=== PATIENT | female | born 1995 | race African-American/Black ===

== ENCOUNTER 2016-11-30 10:28 | Emergency (ER) | payer OTHER | END 2016-11-30 14:32 | disposition home or self-care (01) | LOC: D.ER 10:28 | DX: J11.1 Influenza due to unidentified influenza virus with other respiratory manifestations (principal); F17.200 Nicotine dependence, unspecified, uncomplicated ==

== ENCOUNTER → 2017-07-01 09:48 | Outpatient (CLI) | payer MEDICAID ==
[~2017-07-01 09:48] MED LIST: IBUPROFEN800 MG PO; NIFEDIPINE ER60 MG PO; PERCOCET 7.5/321 TAB PO
[2017-07-01 11:40] LABS: APPEARANCE CLEAR (CLEAR); BILIRUBIN NEGATIVE (NEGATIVE); COLOR YELLOW (YELLOW); GLUCOSE NEGATIVE (NEGATIVE); KETONE NEGATIVE (NEGATIVE); NITRITE NEGATIVE (NEGATIVE); PROTEIN NEGATIVE (NEGATIVE); UROBILINOGEN NORMAL (NORMAL)
== END | disposition home or self-care (01) ==
LOC: D.LDO 09:48
PROVIDERS: Obstetrics & Gynecology
DX: O16.3 Unspecified maternal hypertension, third trimester (principal); Z3A.35 35 weeks gestation of pregnancy

== ENCOUNTER 2017-07-08 09:24 | Inpatient (IN) | payer MEDICAID ==
[~2017-07-08] VITALS: Ht 167.6 cm; Wt 161.9 kg
[2017-07-08 10:21] VITALS: BP 150/89; Ht 167.6 cm; Wt 161.9 kg
[2017-07-08 10:59] LABS: BASOPHILS 0.2 % (0-2); EOSINOPHILS 1.8 % (0-7); HEMATOCRIT 35.3 % (36.0-48.0); HEMOGLOBIN 11.9 g/dL (12-16); IMMATURE GRANULOCYTES 0.6 % (0-5); LYMPHOCYTES 22.4 % (15-50); MCH 26.7 pg (26.0-34.0); MCHC 33.7 g/dL (31.0-37.0); MCV 79.1 fL (80.0-100.0); MEAN PLATELET VOLUME 9.2 fL (7.4-10.4); MONOCYTES 11.2 % (2-11); NEUTROPHILS 63.8 % (40-80); PLATELET COUNT 334 10x3/uL (130-400); RBC 4.46 10x6/uL (4.00-5.40); RDW 14.3 % (11.5-14.5); WBC 12.6 10x3/uL (4.8-10.8)
[2017-07-08 11:15] LABS: ALBUMIN 2.4 g/dL (3.4-5.0); ALKALINE PHOSPHATASE 98 U/L (46-116); ALT (SGPT) 18 U/L (10-68); BILIRUBIN - DIRECT 0.03 mg/dL (0.00-0.30); BILIRUBIN - INDIRECT 0.12 mg/dL (0.00-1.00); BILIRUBIN - TOTAL 0.15 mg/dL (0.2-1.3); CALC OSMOLALITY 272 mosm/kg (275-300); CARBON DIOXIDE 24.7 mmol/L (21.0-32.0); CHLORIDE - SERUM 106 mmol/L (98-107); CREATININE - SERUM 0.5 mg/dL (0.6-1.3); GLUCOSE 70 mg/dL (74-106); POTASSIUM - SERUM 4.1 mmol/L (3.5-5.1); PROTEIN - SERUM 6.6 g/dL (6.4-8.2); SODIUM 139 mmol/L (136-145); UREA NITROGEN 5 mg/dL (7-18); URIC ACID 4.2 mg/dL (2.6-7.2); eGFR NON AFRICAN AMERICAN > 90 mL/min (90-120)
[2017-07-08 11:31] LABS: APPEARANCE HAZY (CLEAR); BILIRUBIN NEGATIVE (NEGATIVE); COLOR YELLOW (YELLOW); GLUCOSE NEGATIVE (NEGATIVE); KETONE NEGATIVE (NEGATIVE); NITRITE NEGATIVE (NEGATIVE); PROTEIN 1+ mg/dL (NEGATIVE); UROBILINOGEN NORMAL (NORMAL)
[2017-07-08 11:32] LABS: BACTERIA FEW /hpf (NONE SEEN); EPITHELIAL CELLS 0-5 /hpf (0-5); MUCUS <1+ /lpf (NONE SEEN); WHITE CELLS - URINE OCC /hpf (0-5)
[2017-07-09 07:32] LABS: RAPID PLASMA REAGIN Non Reactive (Non Reactive)
[2017-07-09 18:08] LABS: BASOPHILS 0.1 % (0-2); HEMATOCRIT 38.8 % (36.0-48.0); IMMATURE GRANULOCYTES 0.4 % (0-5); LYMPHOCYTES 19.5 % (15-50); MCH 26.9 pg (26.0-34.0); MCHC 33.5 g/dL (31.0-37.0); MCV 80.2 fL (80.0-100.0); MEAN PLATELET VOLUME 9.2 fL (7.4-10.4); MONOCYTES 4.9 % (2-11); NEUTROPHILS 74.1 % (40-80); RBC 4.84 10x6/uL (4.00-5.40); RDW 14.6 % (11.5-14.5); WBC 14.3 10x3/uL (4.8-10.8)
[2017-07-09 18:11] LABS: PLATELET COUNT 267 10x3/uL (130-400)
[2017-07-09 19:13] LABS: ALBUMIN 2.6 g/dL (3.4-5.0); ALKALINE PHOSPHATASE 110 U/L (46-116); ALT (SGPT) 20 U/L (10-68); BILIRUBIN - TOTAL 0.27 mg/dL (0.2-1.3); CALC OSMOLALITY 273 mosm/kg (275-300); CALCIUM 10.5 mg/dL (8.5-10.1); CARBON DIOXIDE 22.1 mmol/L (21.0-32.0); CHLORIDE - SERUM 104 mmol/L (98-107); CREATININE - SERUM 0.5 mg/dL (0.6-1.3); GLUCOSE 102 mg/dL (74-106); POTASSIUM - SERUM 4.4 mmol/L (3.5-5.1); PROTEIN - SERUM 6.7 g/dL (6.4-8.2); SODIUM 138 mmol/L (136-145); UREA NITROGEN 6 mg/dL (7-18); URIC ACID 5.2 mg/dL (2.6-7.2); eGFR NON AFRICAN AMERICAN > 90 mL/min (90-120)
[2017-07-10] VITALS (13 sets, daily range): BP systolic 130–177; BP diastolic 77–104
--- NOTE | 2017-07-10 17:56 | NUR ---
RECEIVED PT FROM VIA BED TO ROOM 1274. BED LOCKED AND PLACED IN LOW POSITION. VS NOTED. DENIES PAIN, HEADACHE, VIS PROBLEMS, EPIG OR RUQ PAIN. HRRR WITHOUT AUDIBLE MURMUR. BBS HYPOACTIVE. ABDOMEN SOFT. FUNDUS FIRM AT U/1. RUBRA LOCHIA SMALL AMT. PERIPAD CHANGED. ICE PACK TO INCISION. INCISION WITH GLUE AND SKIN STITCHES. NO REDNESS, SWELLING OR DRAINAGE NOTED. PPP. MILD NON-PITTING EDEMA NOTED TO BLE. SCDS ON BLE. PUMP ON. PIV OF NS WITH PITOCIN 20 UNITS INFUSING AT 125 ML/HR. SITE CLEAR TO RIGHT WRIST. PT PROVIDED APPLE JUICE AND ENCOURAGED TO CONSUME SLOWLY.
--- NOTE | 2017-07-10 18:22 | NUR ---
PROCARDIA XL 30 MG GIVEN PO ORDERED. PT INSTRUCTED ON MED. VERBALIZES UNDERSTANDING.
--- NOTE | 2017-07-10 18:36 | NUR ---
DR SZYMANSKI NOTIFIED OF PT BP'S AND PROCARDIA GIVEN. NEW PARAMETERS RECEIVED.
--- NOTE | 2017-07-10 19:00 | NUR ---
PATIENT REPORT RECEIVED FROM IVETT ABREU TO ASSUME PATIENT CARE.
--- NOTE | 2017-07-10 19:12 | NUR ---
PATIENT ASSESSMENT PERFORMED. PT LYING IN BED ON HER BACK, FAMILY AT BEDSIDE. PERICARE PERFORMED,CLEAN PAD PLACED. PATTERSON CATHETER EMPTIED OF 100ML CONCENTRATED URINE. SCD BOOTS IN PLACE.18 GAUGE IV TO RIGHT WRIST PATENT AND FLUIDS INFUSING PER MD ORDER WITHOUT S/S OF INFILTRATION. PATIENT STATES THAT HER PAIN IS 4/10 CRAMPING TO ABDOMEN AND SHARP PAIN TO INCISION. FUNDUS FIRM,MIDLINE,-1. BLEEDING SMALL, RUBRA, NO CLOTS. PATIENT DENIES FEELING UPON CHECKING HOMANS SIGN DUE TO SPINAL ANESTHESIA. PT DENIES NEED AT THIS TIME. FAMILY REMAINS AT BEDSIDE BUT IS AWARE TO KEEP LIGHTS OFF AND ROOM QUIET DUE TO INCREASED BP. PT TEACHING DONE ON DEEP BREATHING, IS, ELEVATED BP, MEDICATIONS AND PLAN OF CARE.
--- NOTE | 2017-07-10 19:50 | NUR ---
PATIENT TURNED TO LEFT SIDE USING PILLOWS FOR COMFORT AND SUPPORT. BP CUFF CHANGED TO LARGER SIZE AND BP RETAKEN. 145/96. INCENTIVE SPIROMETER TEACHING PERFORMED AND DEMONSTRATION RETURNED BY PATIENT. JEMALNEVILLEO AND BROTH REQUESTED OFF TRAY. PATIENTS MOTHER ASSISTING HER WITH EATING AT THIS TIME.
--- NOTE | 2017-07-10 20:50 | NUR ---
PATIENT RESTING QUIETLY WITH EYES OPEN, FAMILY REMAINS AT BEDSIDE. PT STATES THAT HER PAIN IS UNCHANGED, MEAT [employer]ODUCTS DEMONSTRATOR TEACHING PERFORMED AND PT VERBALIZES UNDERSTANDING. PATTERSON CATHETER EMPTIED OF 600ML CLEAR YELLOW URINE AT THIS TIME. FRESH ICE PACK PLACED TO ABDOMINAL INCISION SITE. ICE WATER PROVIDED PER PT REQUEST, TRAY TABLE AND CALL CHAPARRO IN REACH. BED LOCKED IN LOW POSITION AND SIDE RAILS REMAIN UPX2. PT DENIES FURTHER NEEDS, ENCOURAGED TO CALL PRN.
--- NOTE | 2017-07-10 21:15 | NUR ---
PATIENT DRANK 480ML WATER AND PROVIDED WITH A SECOND CUP OF ICE WATER. DENIES OTHER NEEDS
--- NOTE | 2017-07-10 21:20 | NUR ---
ENGINEERING HERE TO EVALUATE ROOM PHONE THAT WILL NOT ALLOW CALLS TO COME INTO ROOM. ENGINEERING CONCLUDED THAT DAYSHIFT IN ENGINEERING WILL HAVE TO RESOURCE COMPANY TO FIX PHONE. GAVE PT. OPTION OF CHANGING ROOMS OR REMAINING IN ROOM AND USING HER CELL PHONE IF SHE DESIRES. PT. RELATES THAT SHE PREFERS NOT TO CHANGE ROOMS AND SHE REALLY DID NOT WANT TO TALK ON THE PHONE ANYWAY BUT WOULD USE CELL PHONE IF DESIRED.
--- NOTE | 2017-07-10 22:05 | NUR ---
PATIENT RESTING ON LEFT SIDE WITH EYES CLOSED. EASILY AROUSED TO VERBAL. PT STATES PAIN REMAINS TOLERABLE AT 4/10, PERICARE PERFORMED AND CLEAN PAD PLACED, ICE PACK REMAINS IN PLACE, BLEEDING NOTED TO BE SMALL RUBRA. PATTERSON CATHETER EMPTIED OF 650ML CLEAR YELLOW URINE. PT DRANK 500ML WATER AND IS REQUESTING MORE, ICE WATER PROVIDED AT THIS TIME. PT DENIES OTHER NEEDS.
[2017-07-11] VITALS (10 sets, daily range): BP systolic 130–202; BP diastolic 69–92
--- NOTE | 2017-07-11 00:10 | NUR ---
PATIENT SLEEPING, EASILY AROUSED TO VERBAL. PATIENT TURNED TO RIGHT SIDE WITH ASSISTANCE. PERICARE PERFORMED, CLEAN PAD PLACED, BLEEDING SMALL, RUBRA. PATTERSON CATHETER EMPTIED OF 1000ML CLEAR YELLOW URINE. INCENTIVE SPIROMETER USED AT THIS TIME, PT ABLE TO INHALE TO THE 1000 CRISTINA. FRESH ICE WATER PROVIDED PER PT REQUEST.
--- NOTE | 2017-07-11 01:18 | NUR ---
PATIENTS BP NOTED TO BE ELEVATED AT 0048. CUFF NOTED TO HAVE FALLEN DOWN HER ARM. CUFF REPLACED TO APPROPRIATE POSITION AND BP RETAKEN WITH RESULTS OF 178/84. THESE MEET THE PARAMETERS SET BY THE MD. WILL CONTINUE TO MONITOR.
--- NOTE | 2017-07-11 01:23 | NUR ---
PATIENT GIVEN LABETALOL 200MG PO AT THIS TIME WITH WATER. PATIENT DENIES ANY HEADACHES OR BLURRY VISION. PT HAS NO COMPLAINTS AT THIS TIME, WILL CONTINUE TO MONITOR.
--- NOTE | 2017-07-11 01:41 | NUR ---
PATIENTS BP RETAKEN AT THIS TIME. 148/76. PATIENT RESTING QUIETLY WITH EYES CLOSED. EASILY AROUSED TO VERBAL. DENIES NEEDS OR PAIN AT THIS TIME.
--- NOTE | 2017-07-11 02:01 | NUR ---
PATIENT SLEEPING WITH AUDIBLE SNORING. EASILY AROUSED TO VERBAL, DENIES PAIN OR NEEDS AT THIS TIME, NEW IV BAG OF NS WITH 20 UNITS PITOCIN HUNG AT 125ML/HR PER MD ORDERS. PATTERSON CATHETER EMPTIED OF 500ML CLEAR YELLOW URINE. BED LOCKED IN LOW POSITION, TRAY TABLE AND CALL CHAPARRO IN REACH. FAMILY REMAINS AT BEDSIDE FOR ASSISTANCE.
--- NOTE | 2017-07-11 04:27 | NUR ---
PATIENT SLEEPING WITH AUDIBLE SNORING. 400ML CLEAR YELLOW URINE EMPTIED FROM PATTERSON CATHETER.
--- NOTE | 2017-07-11 05:58 | NUR ---
CALLED TO ROOM BY PATIENT. STATES THAT SHE IS UNABLE TO REACH HER WIND TUNNEL TECHNICIAN BUTTON. REMINDED HER THAT IT WAS TIED TO THE SIDERAIL, HANDED IT TO HER AT THIS TIME FOR USE. PT STATES THAT SHE WAS MOVING AROUND IN THE BED AND STARTED TO HURT, 5/10 ON THE PAIN SCALE. WILL CONTINUE TO MONITOR.
--- NOTE | 2017-07-11 06:30 | NUR ---
PATIENT RESTING QUIETLY WITH EYES CLOSED. PATTERSON CATHETER EMPTIED OF 650ML CLEAR YELLOW URINE, PERICARE PERFORMED AND CLEAN PAD PLACED. SCD'S REMAIN IN PLACE. ICE WATER PROVIDED, PT DENIES OTHER NEEDS.
--- NOTE | 2017-07-11 06:52 | NUR ---
PATIENT REPORT GIVEN TO AM SHIFT TO ASSUME PATIENT CARE.
--- NOTE | 2017-07-11 07:12 | NUR ---
PT AAOX3, VSS, AFEBRILE, RESP EVEN AND UNLABORED, TOLERATING PO FLUIDS WELL WITHOUT N/V, LUNGS CTAB, BS+X4 QUADRANTS, DENIES FLATUS, U/1 WITH SMALL AMT LOCHIA RUBRA NOTED TO PERIPAD, NO CLOTS ON FUNDAL MASSAGE, LOW TRANSVERSE INCISION DRESSING CLEAN DRY INTACT WITHOUT DRAINAGE NOTED, ICE PACK TO INCISION SITE, ABLE TO MOVE BLE FREELY, NO EDEMA NOTED TO PERIPHERAL EXTREMETIES, NEGATIVE DON'S SIGN, CAP REFILL <3 SECS TO BLE, IV SITE TO RIGHT WRIST PATENT WITHOUT S/SX INFECTION OR INFIILTRATION AND INFUSING NS WITH 20U OF PITOCIN AT 125ML/HR. INSTRUCTED ON USE OF INCENTIVE SPIROMETER AND PT DEMONSTRATES USE AND ABLE TO INSPIRE UP TO 1000ML. INSTRUCTED ON PLAN OF CARE TODAY, ENCOURAGED TCDB, INCENTIVE SPIROMETER USE Q1 HOUR WHILE AWAKE, CLEAR LIQUIDS UNTIL MD CHANGES ORDERS, PAIN MANAGEMENT, USE OF ABDOMINAL PILLOW TO USE WHILE TURNING IN BED/MOVEMENT. PT AND PT MOTHER VOICES UNDERSTANDING OF ALL INSTRUCTIONS GIVEN. C/L IN EASY REACH BED IN LOW POSITION, SR UP X2. SR UP X2, BED IN LOW POSITION.
--- NOTE | 2017-07-11 08:15 | NUR ---
PT AAO WATCHING TV IN BED, SR UP X2, BED IN LOW, DENIES PAIN OR ANY NEEDS AT THIS TIME.
--- NOTE | 2017-07-11 09:06 | NUR ---
DENIES PAIN, FRESH ICE WATER PROVIDED TO PT, MOVES ALL EXTREMETIES ON DEMAND, HOLDING AT THIS TIME, RESP EVEN AND UNLABORED. C/L IN EASY REACH, OFFICE TECHNICIAN BUTTON IN EASY REACH.
--- NOTE | 2017-07-11 10:50 | NUR ---
VSS, AFEBRILE, TOLERATING PO CLEAR LIQUIDS WELL, PERICARE PROVIDED AND FRESH PERIPADS PLACED, U/1 MIDLINE AND FIRM, LOCHIA RUBRA SMALL AMT NOTED. INQUIRING ABOUT ABILITY TO SHOWER AND GET OOB. WILL CALL MD. DENIES PAIN, HOLDING INFANT IN ARMS. TEACHING PROVIDED ON WAKING INFANT IF FALLS ASLEEP WHILE FEEDING. STATES UNDERSTANDING.
--- NOTE | 2017-07-11 10:57 | NUR ---
CALLED MD OFFICE TO INQUIRE ABOUT DC ORDERS ON PATTERSON AND USUAL POST-OP ORDERS RECEIVED AFTER 12 HRS PT INQUIRING WHEN SHE CAN GET OOB. SPOKE WITH RANDY WHO STATES AFTER BRIEF HOLD ON PHONE THAT "HE SAID HE WILL BE OVER LATER TO WRITE THOSE ORDERS."
--- NOTE | 2017-07-11 11:30 | NUR ---
PT AAOX3, TURNS SELF IN BED, RESP EVEN AND UNLABORED, HOB AT 45 DEGREES, SR UP X2, BED IN LOW POSITION.
--- NOTE | 2017-07-11 12:09 | OP ---
PATIENT NAME: MANI VILLANUEVA MEDICAL RECORD: [id number] :94 LOCATION:[id number] ADMISSION DATE:07/08/17 SURGEON: BG SZYMANSKI MD DATE OF OPERATION: 07/10/2017 PREOPERATIVE DIAGNOSES: 1. Preeclampsia. 2. Oligohydramnios. 3. Failed induction. 4. at 37 weeks' gestation. POSTOPERATIVE DIAGNOSES: 1. Preeclampsia. 2. Oligohydramnios. 3. Failed induction. 4. at 37 weeks' gestation. PROCEDURE: Primary low transverse section. SURGEON: Bg Szymanski MD SUPERINTENDENT STORAGE AREA: [place]. ANESTHESIOLOGIST: Jacob Whalen MD ANESTHESIA: Spinal. FINDINGS: Viable male , vertex presentation, Apgars 9 and 10. Weight 2749 grams. Uterus with small anterior fibroid is otherwise unremarkable. Tubes and ovaries also unremarkable. SPECIMEN REMOVED: Placenta. SPECIMENS DISPOSITION: Discarded. ESTIMATED BLOOD LOSS: 700 cc. FLUIDS: 1500cc lactated Ringer's. URINE OUTPUT: 200 cc of clear urine. COMPLICATIONS: None. DRAINS: Smith to gravity. INDICATIONS: The patient is a 21-year-old female G1, para 0 who began induction approximately 48 hours ago with misoprostol. The patient has had 2 days of Pitocin and was ruptured this morning and who failed to go into active labor despite adequate uterine stimulation. The patient has been consented for primary low transverse section for the above indications. DESCRIPTION OF PROCEDURE: After informed consent was assured, the patient was taken to the operating room, anesthetic was obtained without difficulty. The patient is now prepped and draped in the usual sterile fashion. The low transverse incision was made on the abdomen, carried down to the underlying OPERATIVE REPORT [id number] MANI VILLANUEVA layer of the fascia, which was opened and extended laterally. The rectus bellies were and an Shai O retractor placed after opening the peritoneum. After tightening the self-retaining retractor, the sponges were used to pack the bowel away and the gutters. A bladder flap was developed and a low transverse hysterotomy performed. Infant was delivered on to the abdomen with atraumatically and the cord was doubly clamped and cut and passed to the attendance. Placenta delivered via Crede maneuver. Uterus exteriorized, cleared of all clot and debris. The uterus now closed in a running locked fashion with chromic stitch. Posterior cul-de-sac was irrigated and the uterus was felt to be boggy and 1 ampule of Hemabate was given directly into the uterine musculature. Uterus was now returned to the abdomen. The sponges were removed and the pelvis irrigated. The irrigants were removed and inspection of the hysterotomy revealed adequate hemostasis. The fascia was now closed with a looped PDS in a running fashion. Subcutaneous tissues were irrigated, bleeding vessels cauterized, and the fat layer reapproximated with plain gut. Skin was reapproximated with subcuticular stitch and Dermabond was applied. Sponge, lap, and needle counts were correct times 2. The patient tolerated the procedure well. She will be recovered and continue hospitalization on labor and delivery. TRANSINT:[id number] Voice Confirmation ID: [id number] DOCUMENT ID: [id number] BG SZYMANSKI MD at 1209 CC: [id number] DICTATION DATE: 07/10/17 174 ROCK LOADER: 07/10/[address] [facility] [address] [place] [address]
--- NOTE | 2017-07-11 12:15 | NUR ---
MACHINE MAINTENANCE SUPERVISOR DC'D AT 1210, IV SALINE LOCKED AT 1210, SITE BENIGN. PATTERSON DC'D PER MD ORDERS, EMPTIED CLEAR YELLOW URINE FROM DRAINAGE BAG, PERICARE GIVEN, U/1 MIDLINE AND FIRM, NO CLOTS OBSERVED, SCD'S OFF, DENIES PAIN, OOB TO CHAIR PER PT REQUEST WITH MINIMAL ASSISTANCE, DRESSING REMAINS CDI, TOLERATING PO FLUIDS WELL, REGULAR DIET ORDERED PER MD-TRAY ORDERED FROM [place] PER PT REQUEST, LINENS CHANGED. PT REQUESTING SHOWER. DISCUSSED PLAN OF CARE, SHOWERING, PERICARE, ORAL PAIN MEDICATIONS, AMBULATING WITH ASSISTANCE ONLY AT THIS TIME, DIET, AVOIDING GAS FORMING FOODS. PT MOTHER IN ROOM. QUESTIONS ANSWERED, VOICES UNDERSTANDING.
--- NOTE | 2017-07-11 13:21 | NUR ---
PT RINGS CL. RN TO BEDSIDE. PT SITTING UP IN CHAIR AT BEDSIDE. PT'S MOTHER BOTTLE FEEDING . PT REPORTS NEED TO VOID. PT AMB TO BATHROOM WITHOUT ASSISTANCE, STEADY GAIT NOTED. PT VOIDS 300ML BLOOD TINGED URINE INTO UROMETER WITHOUT DIFFICULTY. PERICARE TEACHING PROVIDED. PT VERBALIZES UNDERSTANDING. MESH PANTIES AND PERIPADS PROVIDED. PT AMB BACK TO CHAIR TO FINISH MEAL TRAY. REPORTS WILL AMB IN MOON AFTER HER MOTHER FINISHES FEEDING . DENIES FURTHER NEEDS AT THIS TIME.
--- NOTE | 2017-07-11 14:12 | NUR ---
PT AMB IN HALLWAY TO GET FROM NBN. DENIES PAIN OR NEEDS. WILL CONT TO MONITOR.
--- NOTE | 2017-07-11 15:15 | NUR ---
VSS AFEBRILE, NO NEEDS VOICED, AMBULATORY IN HALLS WITH INFANT IN CRIB AND PT MOTHER AT SIDE.
--- NOTE | 2017-07-11 15:30 | NUR ---
DR SZYMANSKI TO ROOM, DRESSING CDI TO LOW TRANSVERSE ABDOMEN. FAMILY AND VISITORS TO ROOM WELL. DENIES PAIN.
--- NOTE | 2017-07-11 16:05 | NUR ---
PT VISITORS GONE, PT RESTING WITH EYES CLOSED, NO PHYSICAL S/SX PAIN OBSERVED, RESP EVEN AND UNLABORED, C/L IN EASY REACH. ASLEEP IN CRIB NEXT TO PT BED.
--- NOTE | 2017-07-11 17:30 | NUR ---
PT IS SITTING UP ON THE SIDE OF THE BED, EATING SUPPER. PT REQUESTS LEMON EMMONAK SODA, SERVED TO PT. PT DENIES OTHER NEEDS AT THIS TIME. INFANT IN CRIB AT BEDSIDE. PT'S MOTHER AT BEDSIDE.
--- NOTE | 2017-07-11 18:37 | NUR ---
DENIES PAIN, RATES 0 ON PAIN SCALE 0-10, WILL GIVE PO TORADOL PER MD ORDER SCHEDULED. C/L IN EASY REACH, HOLDING IN ARMS, PT MOTHER ALSO PRESENT IN ROOM. STATES PASSING FLATUS.
--- NOTE | 2017-07-11 19:22 | NUR ---
INFANT IN ROOM IN OPEN CRIB. NBN NURSE ENTERS ROOM AND TALKS WITH PT. PT. LYING ON BACK WITH HOB AT 15 DEGREES. OPEN EYES WHEN QUESTIONED BUT ONLY ANSWERS DIRECT QUESTIONS. NOT TALKATIVE. BREATH SOUNDS CLEAR AND BOWEL SOUNDS AUDIBLE. ABD. DRESSING DRY AND INTACT. LOCHIA RUBRA SCANT. DENIES ANY PAIN IN LOWER EXTREMITIES. SALINE LOCK NOTED IN RT WRIST. NO REDNESS NOR EDEMA AT SITE. INFORMED PT. TO CALL THIS NURSE WHEN SHE IS UP TO AMBULATE THE NEXT TIME FOR ASSISTANCE IN REMOVING ABD. DRESSING. PT. STATES UNDERSTANDING. PT'S MOTHER IN ROOM ON SOFA. DENIES PAIN AT THIS TIME.
--- NOTE | 2017-07-11 19:30 | NUR ---
SITTING UP ON SIDE OF BED. ICE WATER AND APPLEJUICE SERVED. NBN NURSE REMAINS IN ROOM.
--- NOTE | 2017-07-11 19:35 | NUR ---
NEW 20 GAUGE IV STARTED TO RIGHT FOREARM AT THIS TIME BY EDWARD BURNETTE. FLUSHES EASILY, PATIENT DENIES PAIN AT THE SITE.
--- NOTE | 2017-07-11 19:39 | NUR ---
UP TO BATHROOM. STEADY GAIT.
--- NOTE | 2017-07-11 20:24 | NUR ---
STANDING IN ROOM HOLDING . KISSING INFANT AND SMILING. DENIES ANY NEEDS AT THIS TIME. STATES SHE IS PASSING FLATUS. ENCOURAGED PT. TO WALK IN HALLWAY PRIOR TO BEDTIME AND SHE RELATES THAT SHE WILL. PT'S MOTHER REMAINS IN ROOM WITH PT.
--- NOTE | 2017-07-11 20:27 | NUR ---
WALKING IN HALLWAY TAKING BACK TO NURSERY. GAIT STEADY.
--- NOTE | 2017-07-11 20:38 | NUR ---
CONTINUES TO AMBULATE IN HALLWAY.
--- NOTE | 2017-07-11 20:54 | NUR ---
BACK TO ROOM. DENIES ANY PAIN OR NEEDS AT THIS TIME.
--- NOTE | 2017-07-11 21:25 | NUR ---
SIDE RAILS UP X 2. PT. LYING IN BED WITH HOB AT 30 DEGREES. INQUIRED IF PT. WANTED THIS NURSE TO ASSIST HER IN REMOVING ABD. DRESSING. PT. STATES, "NO I WANT TO DO IT MYSELF." STATES SHE PLANS TO REMOVE NEXT TRIP UP TO BATHROOM. EXPLAINED HOW TO USE ALCOHOL PREP TO MOISTEN UNDERNEATH ADHESIVE OF DRESSING WHILE REMOVING. PT. STATED UNDERSTANDING. PT'S MOTHER REMAINS AT BEDSIDE. DISCUSSED WITH PT. CARE OF HER INCISION WHEN AT HOME. STATES UNDERSTANDING OF ALL INSTRUCTIONS. PT'S MOTHER ALSO REVIEWED WITH PT. SAME INSTRUCTIONS JUST GIVEN.
--- NOTE | 2017-07-11 21:53 | NUR ---
WALKED TO N TO GET AND RETURNED TO ROOM.
--- NOTE | 2017-07-11 22:56 | NUR ---
INTO ROOM FOR VS ASSESSMENT. PT. CURRENTLY FEEDING . PT. WILL CALL WHEN FEEDING IS COMPLETED. PT'S MOTHER ON SOFA.
--- NOTE | 2017-07-11 23:16 | NUR ---
PT. RETURNED FROM BATHROOM AND SITTING ON SIDE OF BED. VITAL SIGNS OBTAINED. DISCUSSED APPLYING SCDS AND EXPLAINED RATIONAL FOR SCDS. PT. DECLINED TO HAVE SCDS APPLIED AT THIS TIME. STATES SHE WILL MOVE LEGS ABOUT IN BED AND HAS BEEN GETTING UP TO WALK AND TO BATHROOM. PT'S MOTHER REMAINS IN ROOM ON SOFA. DENIES ANY PAIN AT THIS TIME. CALL LIGHT WITHIN REACH AND SIDE RAILS UP X2.
--- NOTE | 2017-07-12 00:23 | NUR ---
INTO ROOM. PT. AWAKENED FOR MED. ADMINISTRATION. APPLE JUICE PROVIDED. DENIES ANY FURTHER NEEDS.
--- NOTE | 2017-07-12 00:58 | NUR ---
HOLDING AT PRESENT. EXPRESSES THAT SHE IS HUNGRY. INFORMED OF NOURISHMENTS ON THE UNIT AND PT. DECLINED. STATES THEY DID NOT SOUND GOOD.
--- NOTE | 2017-07-12 01:00 | NUR ---
PT. PUSHING INFANT IN OPEN CRIB TO NBN. DECLINES THIS NURSE TAKING TO NBN. STATES SHE DESIRES TO WALK. DENIES ANY PAIN OTHER THEN WHEN SHE FIRST GETS UP. VISITORS IN ROOM.
--- NOTE | 2017-07-12 03:40 | NUR ---
LYING ON BACK WITH EYES CLOSED. SNOORING AUDIBLE. PT'S MOTHER AND FATHER ALSO SLEEPING IN ROOM. ROOM TEMP. COLD.
--- NOTE | 2017-07-12 04:50 | NUR ---
PT. AMBULATING IN ROOM AFTER RETURNING FROM BATHROOM. STATES HER IV IS COMING OUT. BLOOD NOTED AT SITE AND CATHETER IS PARTIALLY OUT. IV DISCONTINUED IN INTACT CATH . TIP NOTED. PT. SITTING ON SIDE OF BED FOR VITAL SIGN ASSESSMENT. PT. REPORTS THAT HER BP WILL PROBABLY BE HIGH DUE TO HER JUST BEING UP. SIDE RAILS UP X 2 AND CALL LIGHT WITHIN REACH.
[2017-07-12 04:51] VITALS: BP 173/91
[2017-07-12 06:18] VITALS: BP 189/94
--- NOTE | 2017-07-12 06:18 | NUR ---
UP AND ABOUT IN ROOM. EATING CHOCOLATE CANDY. IN OPEN CRIB AT BEDSIDE. PT. DENIES ANY PAIN. STATES THAT SHE IS READY TO GO HOME.
--- NOTE | 2017-07-12 06:29 | NUR ---
DR. STEPHON EVANS. PT. DENIES ANY PAIN.
--- NOTE | 2017-07-12 06:31 | NUR ---
DR. SZYMANSKI CALLED UNIT AND INFORMED OF BP READING AT 0450 AND ALSO 0618. INFORMED THAT BP READINGS WERE WITH PT. SITTING ON SIDE OF BED. STATES THAT HE WILL MANAGE BP MEDS WHEN HE ARRIVES FOR ROUNDS BUT NO FURTHER ORDERS UNTIL THAT TIME NEEDED.
[2017-07-12 07:20] VITALS: BP 145/86
--- NOTE | 2017-07-12 07:20 | NUR ---
THIS RN TO ROOM FOR SHIFT ASSESSMENT. PT AA0x3, SITTING UP IN BED HOLDING INFANT AND VISITING WITH FAMILY MEMBER. PT DENIES PAIN AT THIS TIME. SHIFT ASSESSMENT COMPLETE, VS OBTAINED, SEE FLOWSHEET FOR DOC. ROOM TEMP DECREASED DUE TO PT AXILLARY TEMP OF 99.3. LOCHIA DISCUSSED WITH PT, PT DENIES HEAVY LOCHIA DEFINED BY HAVING TO CHANGE PAD HOURLY OR LARGE OR SEVERAL CLOTS. INCISION C/D WITH DERMABOND INTACT, NO REDNESS, EDEMA, OR DRAINAGE NOTED. PT INSTRUCTED ON IMPORTANCE OF KEEPING INCISION CLEAN AND DRY. NEW PERIPAD PLACED OVER INCISION TO KEEP DRY. POSSIBLE DISCHARGE TODAY DISCUSSED WITH PT, PT STATES SHE IS READY TO GO HOME. PT PROVIDED WITH PERIPADS, INSTRUCTED TO CALL FOR ANY OTHER NEEDS. UNDERSTANDING VERBALIZED. SRUx2, CL IN REACH. WILL CONT TO MONITOR.
--- NOTE | 2017-07-12 08:50 | NUR ---
DR SZYMANSKI TO PT ROOM FOR ROUNDING.
[2017-07-12 09:11] LABS: BASOPHILS 0.1 % (0-2); EOSINOPHILS 1.5 % (0-7); HEMATOCRIT 31.6 % (36.0-48.0); HEMOGLOBIN 10.6 g/dL (12-16); IMMATURE GRANULOCYTES 0.7 % (0-5); LYMPHOCYTES 19.3 % (15-50); MCH 26.6 pg (26.0-34.0); MCHC 33.5 g/dL (31.0-37.0); MCV 79.2 fL (80.0-100.0); MEAN PLATELET VOLUME 8.5 fL (7.4-10.4); MONOCYTES 7.9 % (2-11); NEUTROPHILS 70.5 % (40-80); PLATELET COUNT 264 10x3/uL (130-400); RBC 3.99 10x6/uL (4.00-5.40); RDW 14.6 % (11.5-14.5); WBC 13.6 10x3/uL (4.8-10.8)
--- NOTE | 2017-07-12 09:23 | NUR ---
THIS RN TO ROOM TO ADMIN PROCARDIA ORDERED. PT SHOWERING, FAMILY IN ROOM. PT DENIES NEED FOR ASSISTANCE OR SUPPLIES. WILL RETURN FOR SUPERVISOR MENDING.
--- NOTE | 2017-07-12 09:50 | NUR ---
PT FAMILY MEMBER TO DESK STATING THAT PAIN WANTS PAIN MEDICAITON AFTER SHOWERING. THIS RN TO ROOM. PT SITTING ON BEDSIDE, STATES PAIN IS 6/10 AT INCISION FOLLOWING SHOWER AND REQUESTS PAIN MEDICATION. PT DENIES NEEDING 2 PERCOCET TABS, 1 TAB ADMIN PER ORDER. PT ADMIN ORDERED PROCARDIA. SEE EMAR FOR DOC. PT PROVIDED WITH FRESH ICE WATER, DENIES FURTHER NEEDS, VISITING WITH FAMILY. SRUx2, CL IN REACH. WILL CONT TO MONITOR.
[2017-07-12] MEDS ORDERED: PERCOCET 7.5/321 TAB PO (10:15)
[2017-07-12] MEDS ORDERED: NIFEDIPINE ER60 MG PO (10:17)
[2017-07-12] MEDS ORDERED: IBUPROFEN800 MG PO (10:17)
--- NOTE | 2017-07-12 10:30 | NUR ---
THIS RN TO ROOM FOR PT CHECK. PT RATES PAIN 2/10, STATES PERCOCET HELPED. PT DENIES NEEDS AT THIS TIME, VISITING WITH FAMILY. SRUx2, CL IN REACH.
--- NOTE | 2017-07-12 12:00 | NUR ---
PT AMBULATIING IN HALLS TO ICE MACHINE, DENIES PAIN OR ANY NEEDS AT THIS TIME. WILL CONT TO MONITOR.
[2017-07-12 13:23] VITALS: BP 139/76
--- NOTE | 2017-07-12 13:23 | NUR ---
THIS RN TO ROOM FOR PT CHECK AND COMMUNITY MANAGER. PT SUPINE, HOB 45 DEGREES, RESTING WITH EYES CLOSED. RESP EVEN AND UNLABORED. PT ALERTS THIS RN ENTERS ROOM. PT DENIES PAIN OR ANY NEEDS. BP STABLE, SEE FLOWSHEET. PT ADMIN ORDERED TORADOL. PT DENIES FURTHER NEEDS. SRUx2, CL IN REACH.
--- NOTE | 2017-07-12 14:07 | NUR ---
THIS RN TO ROOM FOR PT CHECK. PT SITTING UP IN BED VISITING WITH FAMILY, DENIES NEEDS. SRUx2, CL IN REACH.
--- NOTE | 2017-07-12 15:10 | NUR ---
THIS RN TO ROOM FOR PAIN REASSESSMENT AND D/C INSTRUCTIONS. PT DENIES PAIN AT THIS TIME. DISCHARGE INSTRUCTIONS GIVEN WELL WRITTEN PRESCRIPTIONS. PT VERBALIZES UNDERSTANDING AND DENIES QUESTIONS. PT SIGNS CHART COPIES, GIVEN WRITTEN COPIES OF INSTRUCTIONS. ROOMING IN AGREEMENT REVIEWED WITH PT. PT VERBALIZES UNDERSTANDING AND SIGNS AGREEMENT. AGREEMENT PROVIDED TO NURSERY FOR CONTACT INFO. PT AND FAMILY MOVE BELONGINGS TO ROOM 1215 TO ROOM IN.
== END 2017-07-12 15:30 | disposition home or self-care (01) | DRG 765 ==
LOC: D.LDO 09:24 → D.LD 11:49 → D.WS 07-12 15:30
PROVIDERS: Obstetrics & Gynecology; ADMIT Obstetrics & Gynecology
PROC: 10D00Z1 Extraction of Products of Conception, Low, Open Approach (ICD-10-PCS; principal; 2017-07-10 16:00)
DX: O14.94 Unspecified pre-eclampsia, complicating childbirth (principal); O41.03X0 Oligohydramnios, third trimester, not applicable or unspecified; Z3A.37 37 weeks gestation of pregnancy; Z37.0 Single live birth; O61.0 Failed medical induction of labor; O16.5 Unspecified maternal hypertension, complicating the puerperium; R00.0 Tachycardia, unspecified; O90.89 Other complications of the puerperium, not elsewhere classified; Z87.891 Personal history of nicotine dependence

== ENCOUNTER → 2019-02-15 | Emergency (ER) | payer MEDICAID ==
[~2019-02-15] VITALS: Ht 167.6 cm; Wt 136.4 kg
[~2019-02-15] MED LIST changes: +RANITIDINE HCL150 M1 PO
[2019-02-15 21:54] VITALS: BP 146/112; Ht 167.6 cm; Wt 136.4 kg
[2019-02-15 22:15] LABS: APPEARANCE CLEAR (CLEAR); BILIRUBIN NEGATIVE (NEGATIVE); COLOR YELLOW (YELLOW); GLUCOSE NEGATIVE (NEGATIVE); KETONE NEGATIVE (NEGATIVE); NITRITE NEGATIVE (NEGATIVE); PROTEIN NEGATIVE (NEGATIVE); UROBILINOGEN NORMAL (NORMAL)
[2019-02-15 22:31] LABS: BASOPHILS 0.2 % (0-2); EOSINOPHILS 1.9 % (0-7); HEMATOCRIT 32.4 % (36.0-48.0); IMMATURE GRANULOCYTES 0.1 % (0-5); LYMPHOCYTES 46.1 % (15-50); MCH 25.1 pg (26.0-34.0); MEAN PLATELET VOLUME 8.2 fL (7.4-10.4); MONOCYTES 8.2 % (2-11); NEUTROPHILS 43.5 % (40-80); PLATELET COUNT 301 10x3/uL (130-400); RBC 4.38 10x6/uL (4.00-5.40); WBC 9.9 10x3/uL (4.8-10.8)
[2019-02-15 23:21] LABS: ALBUMIN 3.1 g/dL (3.4-5.0); ALKALINE PHOSPHATASE 57 U/L (46-116); ALT (SGPT) 23 U/L (10-68); BILIRUBIN - TOTAL 0.25 mg/dL (0.2-1.3); CALC OSMOLALITY 272 mosm/kg (275-300); CALCIUM 9.6 mg/dL (8.5-10.1); CARBON DIOXIDE 24.4 mmol/L (21.0-32.0); CHLORIDE - SERUM 103 mmol/L (98-107); CREATININE - SERUM 0.6 mg/dL (0.6-1.3); GLUCOSE 95 mg/dL (74-106); POTASSIUM - SERUM 3.8 mmol/L (3.5-5.1); SODIUM 137 mmol/L (136-145); UREA NITROGEN 9 mg/dL (7-18); eGFR NON AFRICAN AMERICAN > 90 mL/min (90-120)
[2019-02-15 23:42] LABS: AMYLASE - SERUM 28 U/L (25-115); HCG - QUANTITATIVE (MATERNAL) 21251 mIU/mL; LIPASE 63 U/L (73-393)
== END | disposition home or self-care (01) ==
LOC: D.ER 21:47
PROVIDERS: Family Medicine
DX: O26.891 Other specified pregnancy related conditions, first trimester (principal); Z3A.08 8 weeks gestation of pregnancy; R10.9 Unspecified abdominal pain

== ENCOUNTER 2019-09-28 07:00 | Inpatient (IN) | payer MEDICAID ==
[~2019-09-28] VITALS: Ht 167.6 cm; Wt 171.5 kg
[2019-09-28] VITALS (16 sets, daily range): BP systolic 103–171; BP diastolic 54–103; Ht 167.6 cm; Wt 171.5 kg
[2019-09-28 10:01] LABS: HEMATOCRIT 37.4 % (36.0-48.0); HEMOGLOBIN 12.7 g/dL (12-16); MCH 26.3 pg (26.0-34.0); MCV 77.6 fL (80.0-100.0); MEAN PLATELET VOLUME 8.8 fL (7.4-10.4); RBC 4.82 10x6/uL (4.00-5.40); RDW 14.8 % (11.5-14.5); WBC 14.5 10x3/uL (4.8-10.8)
[2019-09-28 10:27] LABS: HEMATOCRIT 36.6 % (36.0-48.0); HEMOGLOBIN 12.3 g/dL (12-16); MCH 26.3 pg (26.0-34.0); MCHC 33.6 g/dL (31.0-37.0); MCV 78.2 fL (80.0-100.0); MEAN PLATELET VOLUME 8.9 fL (7.4-10.4); PLATELET COUNT 327 10x3/uL (130-400); RBC 4.68 10x6/uL (4.00-5.40); WBC 14.2 10x3/uL (4.8-10.8)
[2019-09-28 10:42] LABS: CALC OSMOLALITY 269 mosm/kg (275-300); CALCIUM 9.8 mg/dL (8.5-10.1); CARBON DIOXIDE 27.9 mmol/L (21.0-32.0); CHLORIDE - SERUM 104 mmol/L (98-107); CREATININE - SERUM 0.7 mg/dL (0.6-1.3); GLUCOSE 71 mg/dL (74-106); POTASSIUM - SERUM 3.9 mmol/L (3.5-5.1); SODIUM 137 mmol/L (136-145); UREA NITROGEN 8 mg/dL (7-18); eGFR NON AFRICAN AMERICAN > 90 mL/min (90-120)
[2019-09-28 10:46] LABS: ALBUMIN 2.2 g/dL (3.4-5.0); ALKALINE PHOSPHATASE 124 U/L (30-120); ALT (SGPT) 18 U/L (10-68); BILIRUBIN - INDIRECT 0.14 mg/dL (0.00-1.00); BILIRUBIN - TOTAL 0.18 mg/dL (0.2-1.3); PROTEIN - SERUM 6.4 g/dL (6.4-8.2)
[2019-09-28 10:47] LABS: BILIRUBIN - DIRECT 0.04 mg/dL (0.00-0.30)
--- NOTE | 2019-09-28 11:20 | NUR ---
DR SZYMANSKI IN UNIT.
[2019-09-28 11:58] LABS: APPEARANCE HAZY (CLEAR); BILIRUBIN NEGATIVE (NEGATIVE); COLOR YELLOW (YELLOW); GLUCOSE NEGATIVE (NEGATIVE); KETONE NEGATIVE (NEGATIVE); NITRITE NEGATIVE (NEGATIVE); PROTEIN 1+ mg/dL (NEGATIVE); SPECIFIC GRAVITY 1.015 (1.005-1.020); UROBILINOGEN NORMAL (NORMAL)
[2019-09-28 12:00] LABS: BACTERIA FEW /hpf (NEGATIVE); EPITHELIAL CELLS 0-5 /hpf (0-5); RED CELLS - URINE RARE /hpf (0-5); WHITE CELLS - URINE RARE /hpf (NEGATIVE)
[2019-09-28 12:43] LABS: BASOPHILS 1 % (0-2); EOSINOPHILS 2 % (0-7); LYMPHOCYTES 22 % (15-50); MONOCYTES 8 % (2-11); NEUTROPHILS 63 % (40-80); PLATELET ESTIMATE NORMAL
--- NOTE | 2019-09-28 12:57 | NUR ---
PT ARRIVED LATE. PROCEDURE STARTED 3 HOURS AND 37 MIN AFTER SCHEDULED TIME. DIFFICULT SPINAL BLOCK BABY DELIVERED AT 1151 PLACENTA AT 1152
--- NOTE | 2019-09-28 13:00 | NUR ---
PT RECEIVED BY BED FROM RECOVERY POST LOW TRANSVERSE SECTION TO ROOM 1278. PT IS AWAKE, ALERT, AND HAS O2 TUBING CONNECTED. REPORT FROM RR PT SAT RUNNING 90-91 ON 2 LITERS. O2 SAT MONITOR IS NOTED TO BE ON PT'S FINGER, WHICH HAS NEON GREEN ACRYLIC NAILS. O2 SAT MONITOR MOVED TO SECOND RIGHT TOE. O2 NOW 97 % ON ROOM AIR. PT HAS LARGE WHITE DRESSING OVER INCISION, WITH 2 APPROX PEA SIZED CIRCULAR AREAS OF LIGHT RED DRAINAGE NOTED AND CIRCLED. PALPATES SOFT, FUNDUS FIRM, U/1, NO CLOTS EXPELLED, SMALL RUBRA LOCHIA. PT HAS PATTERSON CATH, WITH LIGHT YELLOW URINE NOTED IN TUBING AND UROMETER. 50 CC'S NOTED. SCD'S ARE ON PT, BUT NOT CONNECTED TO PUMP. CONNECTED TO PUMP AT IS TIME BY Ryan ESPINOZA RN. PERIPADS CHANGED WITH NEW ONES PLACED BY Ryan ESPINOZA RN. PT DENIES ANY PAIN. PT IS REQUESTING SOMETHING TO DRINK. PT DENIES CHEST PAIN, SOB OR NAUSEA. ICE WATER SERVED. ICE PACK PLACED OVER GOWN TO INCISIONAL AREA. PT TO LEFT TILT. DENIES ALL NEEDS AT THIS TIME. SRUP X2, CALL LIGHT AND PHONE WITHIN REACH. FAMILY AT BEDSIDE.
--- NOTE | 2019-09-28 13:15 | NUR ---
FUNDUS FIRM, U/1, SMALL RUBRA LOCHIA, NO CLOTS EXPELLED.
--- NOTE | 2019-09-28 13:23 | NUR ---
ATE FEW BITES OF [facility] HER FAMILY HAS GONE TO [facility] FOR FOOD. BABY IN ARMS. STATES IS READY TO SHOWER.
--- NOTE | 2019-09-28 13:30 | NUR ---
INCENTIVE SPIROMETER GIVEN TO PT WITH INSTRUCTIONS ON USE, PT DEMONSTRATES WELL USING I/S X 3.
--- NOTE | 2019-09-28 13:45 | NUR ---
FUNDUS FIRM, U/1, SMALL RUBRA LOCHIA, NO CLOTS. PT CONTINUES TO HAVE WEAKNESS TO BOTH LEGS DUE TO SPINAL ANESTHESIA. PT DENIES WANTING PAIN MEDICATION, RATING PAIN 0/10. ABDOMEN CONTINUES TO PALPATE SOFT. SRUP X2, CALL LIGHT AND PHONE WITHIN REACH.
--- NOTE | 2019-09-28 14:52 | NUR ---
DR. WISE IN ROOM SPEAKING WITH PT REGARDING 'S CONDITION, CXR, AND BREATHING. FAMILY ALSO IN ROOM.
--- NOTE | 2019-09-28 16:30 | NUR ---
DR. SZYMANSKI ON UNIT, TO ROOM TO SPEAK WITH PT.
--- NOTE | 2019-09-28 16:45 | NUR ---
DR. SZYMANSKI AT [facility], BP'S REVIEWED BY , STATES I'M OK WITH THOSE FOR NOW, THEY ARE BETTER THAN THEY HAVE BEEN. NO NEW ORDERS RECEIVED FROM .
--- NOTE | 2019-09-28 17:00 | NUR ---
TO ROOM, WITH ASSISTANCE FROM KITTY HA RN PT'S PERIPADS/CHUX AND PERITOWELS CHANGED. FUNDUS FIRM, U/U, MODERATE RUBRA LOCHIA EXPRESSED WITH 2 DIME SIZED CLOTS. PERICARE DONE WITH FOAM CLEANSER. PATTERSON CATH CONTINUES TO DRAIN LIGHT YELLOW URINE. NEW ICE PACK PLACED OVER GOWN TO INCISION. PT ENCOURAGED TO USE INCENTIVE SPIROMETER, DEMONSTRATES WELL, X3, PT THEN COUGHS X2 WHILE USING I/S. PT OFFERED DILAUDID IV FOR PAIN, STATES "I REALLY DON'T THINK I NEED ANYTHING FOR NOW", RATING PAIN 2/10 TO INCISION. ABDOMEN CONTINUES TO PALPATE SOFT. PT DENIES SOB, DIFFICULTY BREATHING, OR NAUSEA. PT CONTINUES TO BE ON LEFT TILT. PILLOWS BEHIND BACK FOR SUPPORT AND COMFORT. SCD'S REMAIN ON. SRUP X 2, CALL LIGHT AND PHONE WITHIN REACH.
--- NOTE | 2019-09-28 18:32 | NUR ---
PT CALLS OUT BOWLING BALL ASSEMBLER LIGHT REQUESTING PAIN MEDICATION. THIS RN TO ROOM. PT RATING PAIN 6/10 AT INCISION. PT ADMIN DILAUDID 2MG IV PER ORDER, SEE EMAR. PT ALSO PROVIDED WITH JELLO PER REQUEST. PT DENIES FURTHER NEEDS. SRUx2, CL IN REACH. FAMILY MEMBERS ON BEDSIDE COUCH.
--- NOTE | 2019-09-28 19:40 | NUR ---
PT REC'D IN BED AT THIS TIME. SNORING. IV TO LEFT HAND PATENT AT THIS TIME. FOLE PATENT WITH YELLOW URINE NOTED. MODERATE LOCHIA. DRESSING INTACT. SCDS IN PLACE AND FUNCTIONAL. ELEVATED BP. PT DENIES PAIN AT THIS TIME. Guillermina TREVIÑO, RN
--- NOTE | 2019-09-28 20:00 | NUR ---
DR KNIGHT CALLED AND INFORMED OF ELEVATED BLOOD PRESSURE ON PATIENT. ORDER REC'D TO DRAW CBC, CMP, AND COLLECT URINE SPECIMEN. ALSO REC'D ORDER FOR ZOFRAN 4 MG Q 4 HRS NEEDED FOR NAUSEA/VOMITING. Guillermina TREVIÑO RN
--- NOTE | 2019-09-28 20:15 | NUR ---
LAB DRAWN AND URINE COLLECTED. LAB HERE AT 2030 TO RECEIVE BLOOD AND URINE. Guillermina TREVIÑO RN
[2019-09-28 20:34] LABS: BASOPHILS 0.1 % (0-2); EOSINOPHILS 0.8 % (0-7); HEMOGLOBIN 11.9 g/dL (12-16); IMMATURE GRANULOCYTES 0.8 % (0-5); LYMPHOCYTES 19.4 % (15-50); MCH 26.5 pg (26.0-34.0); MEAN PLATELET VOLUME 8.6 fL (7.4-10.4); MONOCYTES 6.9 % (2-11); PLATELET COUNT 320 10x3/uL (130-400); RBC 4.49 10x6/uL (4.00-5.40); WBC 17.1 10x3/uL (4.8-10.8)
[2019-09-28 20:44] LABS: APPEARANCE CLEAR (CLEAR); COLOR YELLOW (YELLOW); GLUCOSE NEGATIVE (NEGATIVE); KETONE NEGATIVE (NEGATIVE); NITRITE NEGATIVE (NEGATIVE); PROTEIN TRACE mg/dL (NEGATIVE); SPECIFIC GRAVITY 1.025 (1.005-1.020); UROBILINOGEN NORMAL (NORMAL)
[2019-09-28 20:45] LABS: BILIRUBIN NEGATIVE (NEGATIVE)
[2019-09-28 20:46] LABS: BACTERIA FEW /hpf (NEGATIVE); CALC OSMOLALITY 272 mosm/kg (275-300); CALCIUM 9.3 mg/dL (8.5-10.1); CARBON DIOXIDE 27.7 mmol/L (21.0-32.0); CHLORIDE - SERUM 104 mmol/L (98-107); CREATININE - SERUM 0.6 mg/dL (0.6-1.3); POTASSIUM - SERUM 3.9 mmol/L (3.5-5.1); RED CELLS - URINE 0-5 /hpf (0-5); SODIUM 138 mmol/L (136-145); UREA NITROGEN 9 mg/dL (7-18); WHITE CELLS - URINE 0-5 /hpf (NEGATIVE); eGFR NON AFRICAN AMERICAN > 90 mL/min (90-120)
[2019-09-28 20:47] LABS: GLUCOSE 68 mg/dL (74-106)
[2019-09-28 20:52] LABS: ALBUMIN 2.1 g/dL (3.4-5.0); ALKALINE PHOSPHATASE 110 U/L (30-120); ALT (SGPT) 16 U/L (10-68); PROTEIN - SERUM 5.6 g/dL (6.4-8.2)
--- NOTE | 2019-09-28 21:01 | NUR ---
DR KNIGHT PAGED WITH IMMEDIATE RETURN CALL REC'D. LAB WORK REPORTED AND ALSO MADE AWARE OF ELEVATED PRESSURES SINCE 1999. ORDER REC'D FOR MAG SULFATE 6 GRAM LOADING DOSE THEN MAINTENANCE DOSE A 2 GRAMS/HR. MAG LEVEL IN 4 HOURS . Guillermina TREVIÑO RN
--- NOTE | 2019-09-28 21:45 | NUR ---
PERICARE PROVIDED AT THIS TIME. Guillermina TREVIÑO RN
--- NOTE | 2019-09-28 22:30 | NUR ---
PT RESTING WITH EYES CLOSED. NO COMPLAINTS. Guillermina TREVIÑO, RN
--- NOTE | 2019-09-28 23:32 | NUR ---
PT WITH ELEVATED BP AT THIS TIME. UPON ARRICAL INTO ROOM PT STATES THAT SHE WAS MOVING. BP RECHECKED AT 2337 AND REMIANS ELEVATED. PT STATES THAT HER BACK HURTS. PAIN LEVEL OF 6. DILAUDID OFFERED BUT REFUSED AT THIS TIME. GAYMAR PLACED AT THIS TIME. WILL CONTINUE TO MONITOR. Guillermina TREVIÑO RN
[2019-09-29] VITALS (10 sets, daily range): BP systolic 136–175; BP diastolic 69–99
--- NOTE | 2019-09-29 00:10 | NUR ---
PT STILL HURTING. PT MEIDCATED WITH 2 MG OF DILAUDID. WILL CONTINUE TO MONITOR. Guillermina TREVIÑO RN
--- NOTE | 2019-09-29 00:29 | NUR ---
BP REMAINS ELEVATED DESPITE PAIN MEIDCATION AND HEATING PAD. 0030 DR KNIGHT PAGEBetty AND IMMEDICATE RETURN CALL REC'D. INFORMED OF INTERVENTIONS AND CURRENT PRESSURES. ORDER REC'D FOR LABETOLOL 100 MG PO X1 AND CALL MD IN 1 HOUR WITH BP. Guillermina TREVIÑO RN
--- NOTE | 2019-09-29 00:37 | NUR ---
LABETOLOL GIVEN AT THIS TIME. Guillermina TREVIÑO RN
--- NOTE | 2019-09-29 01:15 | NUR ---
SECONDARY IV SITE STARTED TO THE RIGHT HAND WITH 20G IV CATH X2 ATTEMPTS. Guillermina TREVIÑO RN
--- NOTE | 2019-09-29 01:50 | NUR ---
DR KNIGHT CALLED AT THIS TIME. INFORMED OF 1 HOUR BLOOD PRESSURE CHECK. ORDER REC'D FOR LABETOLOL 100 MG Q8H. CALL IF BP IS OUTSIDE PREVIOUS PARAMETERS. Guillermina TREVIÑO RN
--- NOTE | 2019-09-29 03:51 | NUR ---
DR KNIGHT PAGED WITH IMMEDIATE RETURN CALL REC'D. BP ELEVATED AT THIS TIME. ORDER REC'D FOR ADDITIONAL DOSE OF LABETOLOL 100. HAVE NEXT SHIFT NOTIFY OF AM BLOOD PRESSURE SO THAT BLOOD PRESSURE MEDICATIONS CAN BE ADJUSTED. Guillermina TREVIÑO RN
--- NOTE | 2019-09-29 03:57 | NUR ---
LABETOLOL 100 MG GIVEN. Guillermina TREVIÑO RN
[2019-09-29 06:09] LABS: RAPID PLASMA REAGIN Non Reactive (Non Reactive)
[2019-09-29 07:08] LABS: HEMATOCRIT 33.8 % (36.0-48.0); HEMOGLOBIN 11.2 g/dL (12-16); MCH 26.1 pg (26.0-34.0); MCHC 33.1 g/dL (31.0-37.0); MCV 78.8 fL (80.0-100.0); MEAN PLATELET VOLUME 8.8 fL (7.4-10.4); RBC 4.29 10x6/uL (4.00-5.40); RDW 15.1 % (11.5-14.5); WBC 13.4 10x3/uL (4.8-10.8)
--- NOTE | 2019-09-29 07:13 | NUR ---
[facility] CALLED, WILL REPORT TO DR. KNIGHT.
--- NOTE | 2019-09-29 07:15 | NUR ---
DR. KNIGHT PAGED TO REPORT 0700 B/P AND CURRENT MG LAB RESULT.
--- NOTE | 2019-09-29 07:25 | NUR ---
CALLBACK TO UNIT REC'D FROM DR. KNIGHT. 0700 B/P AND 0530 MG LEVEL REPORTED. ORDERS REC'D TO REPORT TO DR. SZYMANKSI.
--- NOTE | 2019-09-29 07:30 | NUR ---
SHIFT ASSESSMENT AND MGSO4 ASSESSMENT COMPLETED PER FLOWSHEET. C/O ABD CRAMPING AND INCISIONAL DISCOMFORT 01/08, PAIN MEDICATION OFFERED AND DECLINED BY PT. REQUESTS TO EAT, REINFORCED POC AND EXPLAINED REASONING FOR CLEAR LIQUID DIET, VERBALIZES UNDERSTANDING. NEG CLONUS AND HOMANS SIGN. I&O DONE. POC DISCUSSED WITH PT VERBALIZES UNDERSTANDING AND DENIES QUESTIONS. REQUESTS TO GET OOB [place]EL[place]O, WILL NOTIFY DR. SZYMANSKI TO REVIEW B/P'S AND ORDERS AND PT REQUEST. WILL CONTINUE TO MONITOR AND ASSIST PRN.
--- NOTE | 2019-09-29 07:49 | NUR ---
ATTEMPTED TO CALL DR. SZYMANSKI'S CELL PHONE TO REPORT ASSESSMENT FINDINGS AND PT REQUEST TO GET OOB.
--- NOTE | 2019-09-29 08:03 | NUR ---
NO CALLBACK REC'D FROM DR. SZYMANSKI, CALLED CLINIC PER CLINIC STAFF DR. SZYMANSKI NOT OFFICE AND WILL BE ASSISTING DR. MURPHY WITH HER CASE.
--- NOTE | 2019-09-29 08:13 | NUR ---
PT'S MOTHER TO DESK ASKING IF PT CAN GET OOB TO AMBULATE D/T C/O BACK PAIN. RN TO BEDSIDE. EDUCATED PT ON IMPORTANCE OF REMAINING IN BED D/T ELEVATED B/P'S/PIH AND COMPLICATIONS ASSOCIATED WITH PIH, VERBALIZES UNDERSTANDING. PT TEARFUL. REPOSITIONED UP IN BED AND PLACED IN LEFT LATERAL TILT POSITION WITH PILLOW PLACED BEHIND HER BACK. K-PAD REPOSITIONED, REPORTS BACK PAIN "IS WHERE THEY DID MY SPINAL." VERBALIZES THAT SHE IS MORE COMFORTABLE, REQUEST PAIN MEDICATION AT THIS TIME FOR BACK AND ABD DISCOMFORT 03/10 AND CONTINUES TO EXPRESS DESIRE TO GET OOB, WILL NOTIFY DR. SZYMANSKI WHEN OUT OF OR.
--- NOTE | 2019-09-29 08:14 | NUR ---
OR CALLED, PER AUSTEN SZYMANSKI IN CASE. ASK AUSTEN TO HAVE DR. SZYMANSKI CALL UNIT WHEN CASE COMPLETED.
--- NOTE | 2019-09-29 08:30 | NUR ---
MGSO4 CHECK DONE PER FLOWSHEET. 2 MG DILUADID GIVEN TO L HAND PIV PER ORDER AND PT REQUEST. I&O DONE. JELLO AND APPLE JUICE PROVIDED WITH JELLO EATEN WITH RN AT BEDSIDE. SCD'S OFF PER PT REQUEST. REMAINS TEARFUL AND EXPRESSES CONCERN REGARDING INFANT. PT MOTHER AND FRIEND AT BEDSIDE. LIGHTS OFF AND PT ENCOURAGED TO REST, STATES THAT SHE WILL TRY. BED IN LOW POSITION WITH SRUP X2. CALL LIGHT AND PHONE WITHIN REACH. WILL CONTINUET MONITOR.
--- NOTE | 2019-09-29 09:06 | NUR ---
RESTING WITH EYES CLOSED IN HIGH FOWLERS POSITION. RESP REGULAR AND UNLABORED, NO S/S OF DISTRESS NOTED. SCD'S REMAIN OFF. BED IN LOW POSITION WITH SRUP X2. CALL LIGHT AND PHONE WITHIN REACH. WILL CONTINUE TO MONITOR.
--- NOTE | 2019-09-29 09:30 | NUR ---
MGSO4 DONE PER FLOWSHEET. NEG CLONUS AND HOMANS SIGN. CONTINUES TO REFUSE SCD'S. I&O DONE. APPLE JUICE PROVIDED PER REQUEST. DENIES ADDITIONAL NEEDS. BED IN LOW POSITION WITH SRUP X2. CALL LIGHT AND PHONE WITHIN REACH. WILL CONTINUE TO MONITOR.
--- NOTE | 2019-09-29 10:31 | NUR ---
MAG CHECK DONE PER FLOWSHEET. NEG CLONUS AND DON'S SIGN. CONTINUES TO DENY HEADACHE, NAUSEA, EPIGASTRIC PAIN. I&O DONE. PERICARE AND PATTERSON CARE DONE. FUNDUS FIRM MIDLINE AND U2 WITH SCANT RUBRA LOCHIA, NO CLOTS NOTED. PERIPADS AND CHUX CHANGED. FAMILY MEMBERS CONVERSING AT BEDSIDE. LIGHTS REMAIN OFF. CONTINUES TO REFUSE SCD'S. REPORTS THAT BACK PAIN IS MUCH BETTER NOW FOLLOWING REPOSITIONING AND HYDROMORPHONE. BED IN LOW POSITION WITH SRUP X2. CALL LIGHT AND PHONE WITHIN REACH. WILL CONTINUE TO MONITOR.
--- NOTE | 2019-09-29 11:00 | NUR ---
DR. SZYMANSKI ON UNIT. REPORT GIVEN REGARDING PT REQUEST TO EAT, GET OOB, AND HAVE PATTERSON REMOVED. ORDERS REC'D TO D/C MAG, REGULAR DIET, D/C PATTERSON AND SL PIV. WILL NOTIFY PT.
--- NOTE | 2019-09-29 11:25 | NUR ---
POC CHANGES DISCUSSED WITH PT AND HER MOTHER. VERBALIZES UNDERSTANDING AND AGREEMENT. RT HAND PIV SL, NO S/S OF INFILTRATION NOTED. PROCARDIA XL AND TORADOL GIVEN. PT EDUCATED ON MEDS AND VERBALIZES UNDERSTANDING, DENIES QUESTIONS. PATTERSON D/C'D WITH 300 MLS CLEAR LIGHT YELLOW URINE PRESENT. UP TO BR. PERICARE DONE PER PT. PADS AND PANTIES PROVIDED. CHUX CHANGED ON BED. PT NOTIFIED OF TRANSFERRING TO WS UNIT WHEN OPENS, VERBALIZES UNDERSTANDING AND AGREEMENT. EXTRA GOWN PROVIDED PER REQUEST. PT REPORTS THAT SHE IS GOING TO AMBULATE IN [place]. EDUCATED THAT SHE CAN SHOWER FOLLOWING AMBULATION IN [place] IF SHE REMAINS ASYMPTOMATIC.
--- NOTE | 2019-09-29 11:43 | NUR ---
AMBULATORY IN [place] WITH VISITOR. DENIES DIZZINESS, LIGHTHEADEDNESS. STEADY GAIT NOTED. WILL CONTINUE TO MONITOR.
--- NOTE | 2019-09-29 12:00 | NUR ---
RECEIVED PT AMBULATORY FROM LABOR AND DELIVERY TO ROOM 1223. PT TO BED. ORIENTED TO ROOM, BED, AND CALL LIGHT. SR UP X 2. CALL LIGHT IN REACH.
--- NOTE | 2019-09-29 12:57 | NUR ---
PT UP TO SHOWER. LINENS PROVIDED.
--- NOTE | 2019-09-29 13:35 | NUR ---
PT FINISHED WITH SHOWER. ABDOMINAL DRESSING REMOVED. PIECE OF DRESSING ADHERED TO INCISION AND NOT REMOVED AT THIS TIME. PT STATES MARGARITO SHOWER WELL. REQUESTS AND RECEIVES APPLE JUICE.
--- NOTE | 2019-09-29 13:54 | NUR ---
PERCOCET 10/325 GIVEN PO ORDERED FOR PT C/O BACK AND INCISIONAL PAIN. INSTRUCTED ON MED. VERBALIZES UNDERSTANDING.
--- NOTE | 2019-09-29 14:10 | NUR ---
REST OF DRESSING REMOVED USING ADHESIVE REMOVER. INCISION WITH SMALL AREA OF REDNESS TO RIGHT SIDE. PERIPAD TO INCISION. NO DRAINAGE NOTED.
--- NOTE | 2019-09-29 15:37 | NUR ---
PT LYING IN SEMI-MARISCAL'S POSITION IN BED. BP MED GIVEN PO ORDERED. PT INSTRUCTED ON MED. VERBALIZES UNDERSTANDING.
--- NOTE | 2019-09-29 16:55 | NUR ---
PT TEARFUL. STATES "I MISS MY BABY". ENCOURAGEMENT PROVIDED. VSS. TORADOL 10 MG GIVEN PO ORDERED. SL TO RIGHT HAND DC'D WITH CATHELON INTACT. PRESSURE BANDAGE TO SITE. SL TO LEFT HAND CLEAR.
--- NOTE | 2019-09-29 17:45 | NUR ---
PT AMBULATORY IN [place].
--- NOTE | 2019-09-29 18:27 | NUR ---
PT C/O BACK AND ABDOMINAL PAIN OF "5" ON 0-10 PAIN SCALE. PERCOCET 10/325 GIVEN PO ORDERED. PT PROVIDED FRESH ICE WATER. PT STATES VOIDED, BUT DID NOT MEASURE.
--- NOTE | 2019-09-29 19:19 | NUR ---
PM ROUNDS MADE, PT RESTING IN BED, PT RATES INC AND BACK PAIN 02/08, INFORMED PT THAT I WILL ADM PAIN MED WHEN DUE, PT VERBALIZES UNDERSTANDING, INFORMED PT THAT I WILL BE BACK SHORTLY TO DO ASSESSMENT, PT VERBALIZES UNDERSTANDING, DENIES NEEDS AT THIS TIME, FAMILY MEMBER AT BEDSIDE
--- NOTE | 2019-09-29 20:45 | NUR ---
ASSESSMENT PER FLOW SHEET, VS OBTAINED, SALINE LOCK IN LEFT HAND INTACT WITH NO REDNESS OR EDEMA, BIKINI INC WITH DERMABOND CDI WITH NO DRAINAGE NOTED, KELSEY PAD OVER INC FOR COMFORT AND MOISTURE CONTROL, PT REPORTS FLATUS, NO BM, VOIDING WITH NO DIFFICULTY, AND LITE BLEEDING WITH NO CLOTS, SCD'S OFF AT THIS TIME, INFORMED PT THAT THEY WILL NEED TO BE PUT ON AT BEDTIME, PT VERBALIZES UNDERSTANDING, PT RATES INC AND BACK PAIN 3/10, DENIES NEEDS AT THIS TIME, PT'S MOM AT BEDSIDE
--- NOTE | 2019-09-29 21:20 | NUR ---
PT OUT OF ROOM, AMB IN [place], GAIT STEADY, PT'S MOM AT SIDE
--- NOTE | 2019-09-29 21:40 | NUR ---
PT MACHINE OPERATOR HOP PICKER LIGHT, PT BACK IN ROOM, REQUESTED AND PROVIDED BEDDING FOR PT'S MOM, ASSISTED PT'S MOM WITH RECLINER, PT DENIES FURTHER NEEDS
--- NOTE | 2019-09-29 22:23 | NUR ---
PT ASSISTANT FILM EDITOR LIGHT, PT REQUESTED AND SERVED APPLE JUICE, DENIES FURTHER NEEDS, INFORMED PT THAT I WILL BE IN AROUND 11PM TO ADM PAIN MED, OBTAIN VS, AND PLACE SCD'S ON AT THAT TIME, PT VERBALIZES UNDSERSTANDING
--- NOTE | 2019-09-29 23:10 | NUR ---
PT AWAKE, ADM PAIN MED AND TORADOL PER MD ORDERS, SEE EMAR, VS OBTAINED, SCD'S PLACED ON AND WORKING PROPERLY, PT DENIES FURTHER NEEDS, BED IN LOW POSITION, SIDE RAILS X 2, CALL LIGHT IN REACH, PT'S MOM AT BEDSIDE
--- NOTE | 2019-09-29 23:58 | NUR ---
PT RESTING WITH EYES CLOSED, AROUSES TO SOFT VERBAL STIMULATION, ADM LABETOLOL PER MD ORDERS, SEE EMAR, SCD'S DISCONNECTED, PT UP TO BR, GAIT STEADY, PT DENIES NEED FOR ANY ASSISTANCE, PT INST TO USE CALL LIGHT WHEN BACK TO BED, PT VERBALIZES UNSERSTANDING, PT'S MOM AWAKE
--- NOTE | 2019-09-30 00:07 | NUR ---
PT APPLICATIONS SUPPORT ENGINEER LIGHT, PT BACK TO BED, SCD'S RECONNECTED AND WORKING PROPERLY, DENIES FURTHER NEEDS OR PAIN
--- NOTE | 2019-09-30 02:18 | NUR ---
PT RESTING WITH EYES CLOSED, RESP QUIET, NO DISTRESS NOTED, LEFT UNDISTURBED AT THIS TIME, SCD'S CONTINUE ON AND WORKING PROPERLY, PT'S MOM ASLEEP AT BEDSIDE
--- NOTE | 2019-09-30 03:35 | NUR ---
PT RESTING WITH EYES CLOSED, RESP QUIET, NO DISTRESS NOTED, LEFT UNDISTURBED AT THIS TIME, BED IN LOW POSITION, SIDE RAILS X 2, CALL LIGHT IN REACH, PT'S MOM ASLEEP AT BEDSIDE
[2019-09-30 04:14] VITALS: BP 146/86
--- NOTE | 2019-09-30 04:14 | NUR ---
PT SECOND FLOOR OPERATOR LIGHT, VS OBTAINED, ADM NORCO PER MD ORDERS FOR PAIN, SEE EMAR, SCD'S DISCONNECTED, PT UP TO BR, GAIT STEADY, VOIDED BY SELF WITH NO DIFFICULTY, PT BACK TO BED, SCD'S RECONNECTED AND WORKING PROPERLY, PT DENIES FURTHER NEEDS, PT'S MOM AT BEDSIDE
--- NOTE | 2019-09-30 05:47 | NUR ---
PT RESTING WITH EYES CLOSED, ADM TORADOL PER MD ORDERS, SEE EMAR, PT REQUESTS SCD'S OFF AT THIS TIME, PT DENIES FURTHER NEEDS, PT'S MOM REQUESTED AND SERVED LEMON PLATINUM SODA, STATES "THANK YOU, I JUST NEEDED SOMETHING TO DRINK TO TAKE MY PILL THIS MORNING"
--- NOTE | 2019-09-30 05:56 | NUR ---
PT AMB IN [place], GAIT STEADY
--- NOTE | 2019-09-30 06:01 | NUR ---
PT BACK TO ROOM
--- NOTE | 2019-09-30 07:30 | NUR ---
PT. UP TO SHOWER. NO COMPLAINTS OF PAIN AT THIS TIME.
--- NOTE | 2019-09-30 09:00 | NUR ---
AMBULATING IN [place].
--- NOTE | 2019-09-30 09:25 | NUR ---
DR. SZYMANSKI HERE TO SEE PT.
[2019-09-30 10:30] VITALS: BP 161/92
--- NOTE | 2019-09-30 10:30 | NUR ---
RESTING IN BED WITH EYES CLOSED, SUPINE POSITION. PT'S MOTHER ASLEEP IN CHAIR AT BEDSIDE. PT AWAKENED FOR ASSESSMENT. SEE FLOWSHEET. NO COMPLAINTS OF PAIN AT THIS TIME. IV D/C'D. CATHETER INTACT. PRESSURE APPLIED. NO BLEEDING NOTED FROM SITE. BANDAGE APPLIED.
--- NOTE | 2019-09-30 12:00 | NUR ---
PT C/O NECK AND BACK PAIN. REQUESTS ANESTHESIA COME TO EVALUATE. PAIN MED GIVEN. DR. LANGE PAGED AND INFORMED OF PT COMPLAINTS. STATES WILL SEND SOMEONE TO EVALUATE.
--- NOTE | 2019-09-30 12:39 | NUR ---
ANESTHESIA HERE TO ASSESS PT.
--- NOTE | 2019-09-30 13:10 | OP ---
PATIENT NAME: MANI VILLANUEVA MEDICAL RECORD: [id number] :94 LOCATION:[id number] ADMISSION DATE:09/28/19 SURGEON: BG SZYMANSKI MD DATE OF OPERATION: 09/28/2019 PREOPERATIVE DIAGNOSES: 1. A 39 weeks' gestation. 2. History of prior . 3. Hypertension. 4. Undesired fertility. POSTOPERATIVE DIAGNOSES: 1. A 39 weeks' gestation. 2. History of prior . 3. Hypertension. 4. Undesired fertility. 5. Adhesive disease. PROCEDURES: 1. Exploratory laparotomy with lysis of adhesions. 2. Repeat low transverse section. 3. Bilateral tubal ligation using a [place] technique. SURGEON: Bg Szymanski MD MEDICAL WRITER: Soham. DELI/BAKERY ASSOCIATE: Herbie Crain. ANESTHESIOLOGIST: Dr. Simpson. ANESTHESIA: Spinal. FINDINGS: Dense adhesions anteriorly of the uterus and the omentum to the abdominal wall. At the time of delivery, Apgars were 3, 6, and 8 with a pH of 7.078 and viable male infant weighing 7 pounds 5 ounces. Unremarkable tubes and ovaries. SPECIMEN REMOVED: 1. Placenta. 2. Bilateral tubes. SPECIMEN DISPOSITION: All specimens to pathology. ESTIMATED BLOOD LOSS: 800 cc. FLUIDS: 1800 cc lactated Ringer's. URINE OUTPUT: 300 cc of clear urine. COMPLICATIONS: None. DRAINS: Smith to gravity. INDICATIONS: The patient is a 24-year-old female with undesired fertility at 39 OPERATIVE REPORT [id number] MANI VILLANUEVA weeks' gestation. The patient is monitored prior to this procedure with an active fetus making it difficult for nursing to maintain on the monitor. The patient is noted to have elevated pressures into stage II range. The patient has preeclampsia labs drawn. The patient is taken to the operating room after consent for tubal ligation and repeat section. DESCRIPTION OF PROCEDURE: After anesthesia was assessed and found to be adequate and with the patient prepped and draped, an incision was made over the old scar. This incision was carried down to the underlying layer of the fascia. The fascia was opened and extended out laterally. The superior fascia was grasped with 4 Kochers and elevated. The rectus bellies were now dissected free superiorly and then inferiorly. Two Kochers were made attached to the anterior fascia, which was now tied together with a Kerlix and the Kerlix passed to the DELI/BAKERY ASSOCIATE to help elevate the pannus above the incision. The rectus bellies were in the midline and dense adhesions were encountered upon entering the abdomen. These adhesions were taken down sharply and Bovie cautery. Once the adhesions were mobilized, low transverse hysterotomy was performed. The is lifted up to the incision and the vacuum was used to assist delivery of the head. Upon delivery of the head, a nuchal cord is encountered and reduced. was now delivered and the cord was doubly clamped and cut and the immediately passed to the attendant. The placenta was delivered via Crede maneuver and cord blood samples were obtained. Cord gas was as above. The uterus being exteriorized, cleared of all clot and debris and closed with double running stitch of chromic. After the uterus was closed, attention was directed to the left tube where a window was made in the mesosalpinx and 2 ligatures were passed through this opening. These ligatures were secured proximally and distally and the intervening segment of tube removed. The ostia was cauterized. This was repeated on the contralateral side. Once this has been repeated the tubal stump specimens were sent off the field to be placed in the specimen cup for pathology. The uterus has now returned to the abdomen and the pelvis irrigated. Inspection of the tubal stumps were both adequate hemostasis. The rectus bellies were inspected and found to be hemostatic. The fascia was now closed with a running stitch of Vicryl. Subcutaneous tissue was bleeding. It was irrigated. Bleeding vessels cauterized, and the skin was reapproximated with a subcuticular stitch. Sponge, lap, and needle counts correct times 2. Sterile dressing was applied. TRANSINT:[id number] Voice Confirmation ID: [id number] DOCUMENT ID: [id number] BG SZYMANSKI MD at 1310 CC: [id number] DICTATION DATE: 09/28/19 1249 CHILD CARE NURSE: 09/28/19 1804 ADM IN [facility] [address] [id number]
--- NOTE | 2019-09-30 13:25 | NUR ---
RESTING WITH EYES CLOSED ON LEFT SIDE IN BED.
[2019-09-30] MEDS ORDERED: PERCOCET 10-321 EAC1 PO (13:32)
[2019-09-30] MEDS ORDERED: IBUPROFEN800 MG PO (13:33)
--- NOTE | 2019-09-30 14:00 | NUR ---
REVIEWED DISCHARGE INSTRUCTIONS WITH PATIENT. STATES UNDERSTANDING. PRESCRIPTIONS AND FOLLOW-UP APPOINTMENT GIVEN.
--- NOTE | 2019-09-30 14:15 | NUR ---
PT DISCHARGED HOME VIA WHEELCHAIR TO PRIVATE VEHICLE ACCOMPANIED BY FAMILY MEMBER AND HOSPITAL VOLUNTEER STAFF.
== END 2019-09-30 14:15 | disposition home or self-care (01) | DRG 785 ==
LOC: D.LD 07:00 → D.M2 07:00 → D.WS 09:06 → D.LD 09:06 → D.WS 09-29 11:58
PROVIDERS: Obstetrics & Gynecology; ADMIT Obstetrics & Gynecology; ATTEND Obstetrics & Gynecology
PROC: 0UB70ZZ Excision of Bilateral Fallopian Tubes, Open Approach (ICD-10-PCS; 2019-09-28)
PROC: 10D00Z1 Extraction of Products of Conception, Low, Open Approach (ICD-10-PCS; principal; 2019-09-28 07:00)
DX: O99.214 Obesity complicating childbirth (principal); E66.01 Morbid (severe) obesity due to excess calories; Z3A.39 39 weeks gestation of pregnancy; Z37.0 Single live birth; N73.6 Female pelvic peritoneal adhesions (postinfective); O16.4 Unspecified maternal hypertension, complicating childbirth; O34.219 Maternal care for unspecified type scar from previous cesarean delivery; O99.334 Smoking (tobacco) complicating childbirth; M54.2 Cervicalgia; O90.89 Other complications of the puerperium, not elsewhere classified

== ENCOUNTER 2021-01-21 06:53 | Emergency (ER) | payer BC ==
[~2021-01-21] VITALS: Ht 167.6 cm; Wt 172.7 kg
[~2021-01-21 06:53] MED LIST changes: +PERCOCET 10-321 EAC1 PO
[2021-01-21 06:57] VITALS: BP 137/85; Ht 167.6 cm; Wt 172.7 kg
[2021-01-21] MEDS ORDERED: ACETAMINOPHEN500 M1 PO (07:07)
[2021-01-21] MEDS ORDERED: CEPHALEXIN500 M1 PO (07:07)
[2021-01-21] MEDS ORDERED: MEDROL DOSE PACK4 MG PO (07:07)
== END 2021-01-21 07:38 | disposition home or self-care (01) ==
LOC: D.ER 06:53
DX: J02.9 Acute pharyngitis, unspecified (principal); Z72.0 Tobacco use